=== PATIENT | female | born 1945 | race Caucasian/White ===

== ENCOUNTER → 2021-08-15 | Outpatient (CLI) | payer MEDICARE ==
--- NOTE | 2021-08-15 16:14 | CARD ---
MR#: [id number] Date of Study: 08/15/2021 Ordering Physician: RD BOUCHER, Referring Physician: RD BOUCHER Tech: Maisha Torres [facility] APPROVED REPORT EXAM: Two-dimensional and M-mode echocardiogram with Doppler and color Doppler. Other Information Quality : Technically LimitedHR: 96bpm INDICATION Murmur RISK FACTORS Hypertension 2D DIMENSIONS RVDd2.7 (2.9-3.5cm)Left Atrium(2D)3.2 (1.6-4.0cm) IVSd1.2 (0.7-1.1cm)Aortic Root(2D)3.3 (2.0-3.7cm) LVDd3.5 (3.9-5.9cm)LVOT Diameter2.4 (1.8-2.4cm) PWd1.1 (0.7-1.1cm)LVDs2.6 (2.5-4.0cm) FS (%) 24.9 %SV25.6 ml Aortic Valve AoV Peak Alex.134.4cm/sAoV VTI23.4cm AO Peak GR.7.2mmHgLVOT Peak Alex.105.0cm/s AO Mean GR.3mmHgAVA (VMAX)3.64cm2 Pulmonary Valve PV Peak Tciumddc489.4cm/s Tricuspid Valve TR P. [id number]/sTR Peak Gr.34mmHg LEFT VENTRICLE The left ventricle is normal size. Proximal septal thickening is noted. LV systolic function is low n ormal. Estimated ejection fraction is 50%. Mild septal wall motion abnormality. RIGHT VENTRICLE The right ventricle is normal size. There is normal right ventricular wall thickness. The right ventr icular systolic function is normal. ATRIA The left atrium size is normal. The right atrium size is normal. The interatrial septum is intact wit h no evidence for an atrial septal defect or patent foramen ovale as noted on 2-D or Doppler imaging. AORTIC VALVE The aortic valve is normal in structure and function. Doppler and Color Flow revealed no significant aortic regurgitation. There is no significant aortic valvular stenosis. MITRAL VALVE The mitral valve is normal in structure and function. There is no evidence of mitral valve prolapse. There is no mitral valve stenosis. Doppler and Color-flow revealed trace to mild mitral regurgitation . TRICUSPID VALVE The tricuspid valve is normal in structure and function. Doppler and Color Flow revealed trace tricus pid regurgitation. Estimated PAP 35 mmHg. There is no tricuspid valve stenosis. PULMONIC VALVE The pulmonary valve is normal in structure and function. Doppler and Color Flow revealed no pulmonic valvular regurgitation. GREAT VESSELS The aortic root is normal in size. The ascending aorta is normal in size. The IVC is normal in size a nd collapses >50% with inspiration. PERICARDIAL EFFUSION There is no evidence of significant pericardial effusion. Critical Notification Critical Value: No <Conclusion> The left ventricle is normal size. LV systolic function is low normal. Estimated ejection fraction is 50%. Mild septal wall motion abnormality. Doppler and Color Flow revealed no significant aortic regurgitation. There is no significant aortic valvular stenosis. Doppler and Color-flow revealed trace to mild mitral regurgitation. Doppler and Color Flow revealed trace tricuspid regurgitation. Estimated PAP 35 mmHg. Signed by : Dmitry Jain MD Electronically Approved : 08/15/2021 16:14:10
== END ==
LOC: ECHO 08:42
PROVIDERS: ATTEND Physician Assistant Medical
DX: I34.0 Nonrheumatic mitral (valve) insufficiency (principal); R01.1 Cardiac murmur, unspecified
CPT/HCPCS: 93306; C8929